=== PATIENT | male | born 1965 | race African-American/Black ===

== ENCOUNTER 2018-11-15 08:59 | Outpatient (CLI) | payer OTHER ==
--- NOTE | 2018-11-15 11:14 | CT ---
Pre and postcontrast enhanced images of abdomen History: Left adrenal lesion compatible with adenoma. Pre and postcontrast enhanced dynamic images obtained. The liver and spleen are unremarkable. The gallbladder and pancreas unremarkable. Left adrenal area of hypodensity again seen unchanged in size. Again densities on the precontrast enh anced images suggesting a Hounsfield measurement of -20. This is compatible with a adenoma. No other significant interval changes seen. No evidence of lymphadenopathy seen. IMPRESSION: Stable left adrenal adenoma. Transcribed Date/Time: 11/15/2018 11:23 AM
== END 2018-11-15 09:00 | disposition home or self-care (01) ==
LOC: BICCT 08:59
PROVIDERS: ATTEND Urology
DX: D35.02 Benign neoplasm of left adrenal gland (principal)
CPT/HCPCS: 74170